=== PATIENT | male | born 1980 | race Caucasian/White ===

== ENCOUNTER 2019-05-01 12:45 | Emergency (ER) | payer OTHER ==
[~2019-05-01] VITALS: Ht 185.4 cm; Wt 117.9 kg
--- NOTE | 2019-05-01 12:58 | NUR ---
Placed in room 2 . Placed on security monitor, blood pressure machine and pulse oximeter. To gown for exam. Side rails up.nReport given to Topher SILVA.
[2019-05-01 12:59] VITALS: BP_SYST 113
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
--- NOTE | 2019-05-01 13:10 | NUR ---
ER Jose Maria Call at bedside examining patient.
--- NOTE | 2019-05-01 13:30 | NUR ---
# 20 gauge angiocath placed to LH. Use of asceptic technique. Opsite placed over site. Blood return noted. Blood for lab drawn from site. Flushed with 10 cc of normal saline. No evidence of infiltration noted. Patient tolerated well.
--- NOTE | 2019-05-01 13:51 | NUR ---
Patient transported to radiology via WC, accompanied by rad staff.
--- NOTE | 2019-05-01 14:00 | NUR ---
Returned from radiology, back to [facility].
[2019-05-01 14:02] LABS: BASOPHILS # (AUTO) 0.1 K/uL (0.0-0.2); BASOPHILS % (AUTO) 0.4 % (0.0-2.0); EOSINOPHILS % (AUTO) 0.3 % (0.0-4.0); HEMATOCRIT 44.3 % (36-54); HEMOGLOBIN 14.9 g/dL (14.0-18.0); LYMPHOCYTES # (AUTO) 2.6 K/uL (1.0-5.5); LYMPHOCYTES % (AUTO) 20.3 % (20.5-51.5); MEAN CORPUSCULAR HEMOGLOBIN 29 pg (27-31); MEAN CORPUSCULAR HGB CONC 34 % (32-36); MEAN CORPUSCULAR VOLUME 86 fL (79.0-98.0); MONOCYTES # (AUTO) 0.7 K/uL (0.0-1.0); MONOCYTES % (AUTO) 5.3 % (1.7-9.3); NEUTROPHILS # (AUTO) 9.3 K/uL (1.8-7.7); NEUTROPHILS % (AUTO) 73.7 % (40.0-70.0); PLATELET COUNT (AUTO) 267 K/uL (130-430); RED BLOOD CELL COUNT(AUTO) 5.15 MIL/uL (4.2-6.2); RED CELL DISTRIBUTION WIDTH 13.5 % (9.0-15.0); WHITE BLOOD COUNT (AUTO) 12.6 K/uL (4.8-10.8)
[2019-05-01 14:16] LABS: CALCIUM 9.1 mg/dL (8.4-11.0); CREATININE 0.87 mg/dL (0.55-1.30)
[2019-05-01 14:20] LABS: ALBUMIN 3.4 g/dL (3.4-4.8); PROTHROMBIN TIME 10.4 SECS (9.5-12.5); TOTAL BILIRUBIN 0.6 mg/dL (0.0-1.0)
--- NOTE | 2019-05-01 15:00 | NUR ---
Pt medicated tolerated well.
[2019-05-01 15:15] VITALS: BP_SYST 118
[2019-05-01] MEDS ORDERED: HYDROcodone/ACETAMIN 10-325 MG TAB PO ONE (15:15)
[2019-05-01] MEDS ORDERED: IBUPROFEN 800 MG TABLET PO ONE (15:15)
--- NOTE | 2019-05-01 15:15 | NUR ---
Patient given written and verbal discharge instructions and verbalizes understanding. ER MD discussed with patient the results and treatment provided. Patient in stable condition. ID arm band removed. IV catheter removed intact and dressing applied, no active bleeding. no Rx given. Patient educated on pain management and to follow up with PMD. Pain Scale 3. Opportunity for questions provided and answered. Medication side effect fact sheet provided.
== END 2019-05-01 15:15 | disposition home or self-care (01) ==
LOC: SED 12:45
DX: R55 Syncope and collapse (principal); H53.8 Other visual disturbances; F32.9 Major depressive disorder, single episode, unspecified; R11.2 Nausea with vomiting, unspecified
CPT/HCPCS: 36415; 70450-TC; 71045; 80053; 82550-TC; 83605; 84484; 85025; 85610-TC; 85730-TC; 93005; 99284

== ENCOUNTER 2022-05-04 23:14 | Emergency (ER) | payer OTHER ==
[~2022-05-04] VITALS: Ht 180.3 cm; Wt 81.6 kg
[2022-05-04 23:20] VITALS: BP_SYST 139
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
--- NOTE | 2022-05-05 00:25 | NUR ---
MD GILL AT BEDSIDE
--- NOTE | 2022-05-05 01:40 | NUR ---
Patient to bed 7
--- NOTE | 2022-05-05 03:15 | NUR ---
Pt resting in chair, no acute signs of distress. Breathing adequately on RA.
[2022-05-05] MEDS ORDERED: HYDROcodone/ACETAMIN 5-325 MG TAB (NORCO/ VICODIN) PO ONE (05:00)
[2022-05-05] MEDS ORDERED: TRAM50TA2 PO (05:12)
[2022-05-05 05:34] VITALS: BP_SYST 145
--- NOTE | 2022-05-05 05:35 | NUR ---
Patient given written and verbal discharge instructions and verbalizes understanding. ER MD Osorio discussed with patient the results and treatment provided. Patient in stable condition. ID arm band removed. Rx of Tramadol sent to preferred pharmacy. Patient educated on pain management and to follow up with PMD. Pain Scale 1/10. Opportunity for questions provided and answered. Medication side effect fact sheet provided.
== END 2022-05-05 05:34 | disposition home or self-care (01) ==
LOC: SED 23:14
DX: S39.012A Strain of muscle, fascia and tendon of lower back, initial encounter (principal); S20.212A Contusion of left front wall of thorax, initial encounter; F10.129 Alcohol abuse with intoxication, unspecified; I10 Essential (primary) hypertension; E11.9 Type 2 diabetes mellitus without complications; Z87.39 Personal history of other diseases of the musculoskeletal system and connective tissue; Z79.899 Other long term (current) drug therapy; V49.50XA Passenger injured in collision with unspecified motor vehicles in traffic accident, initial encounter; Y93.89 Activity, other specified; Y92.89 Other specified places as the place of occurrence of the external cause; Y99.8 Other external cause status; Y90.6 Blood alcohol level of 120-199 mg/100 ml
CPT/HCPCS: 71045; 72100-TC; 93005; 99284; 99285